=== PATIENT | female | born 1970 | race Caucasian/White ===

== ENCOUNTER 2017-08-05 13:44 | Emergency (ER) | payer OTHER ==
[~2017-08-05] VITALS: Ht 177.8 cm; Wt 97.0 kg
[~2017-08-05 13:44] MED LIST: HYDROCODON-ACE1 EAC7 PO
[2017-08-05 14:28] LABS: HEMATOCRIT 42.7 % (36.0-46.0); MCH 31.1 PG (29.0-34.0); MCHC 34.7 G/DL (30.0-36.0); MCV 89.7 FL (83-99); MEAN PLAT.VOLUME 10.4 uM^3 (9.5-12.4); PLATELET COUNT 197 K/uL (156-360); RBC DIS.WIDTH-CV 12.7 % (11.8-14.6); RBC DIS.WIDTH-SD 42.3 % (39-53); RED BLOOD COUNT 4.76 M/uL (3.80-5.20); WHITE BLOOD COUNT 9.7 K/uL (4.1-10.2)
[2017-08-05 14:39] LABS: CHLORIDE 108 mEq/L (99-109); POTASSIUM 3.9 mEq/L (3.7-5.4); SODIUM 139 mEq/L (136-147)
[2017-08-05 14:41] LABS: GLUCOSE 105 mg/dL (70-99)
[2017-08-05 14:42] LABS: ANION GAP 6 MEQ/L (2-14)
[2017-08-05 14:43] LABS: TOTAL BILIRUBIN 0.8 mg/dL (0.0-1.0)
[2017-08-05 14:45] LABS: ALKALINE PHOSPHATASE 154 IU/L (3-129); GFR ESTIMATE (CALCULATED) > 59 mL/min/
[2017-08-05 14:46] LABS: UREA NITROGEN (BUN) 14 mg/dL (9-23)
[2017-08-05 14:55] LABS: QUANTITATIVE HCG < 4.0 MIU/ML
[2017-08-05 15:17] LABS: ADD MIUA? YES; BILIRUBIN NEGATIVE; BLOOD SMALL; COLOR COLORLESS ((YELLOW)); GLUCOSE (STRIP) NEGATIVE; KETONES NEGATIVE; LEUKOCYTES NEGATIVE; NITRITE NEGATIVE; PROTEIN (STRIP) NEGATIVE; SPECIFIC GRAVITY 1.004 (1.000-1.030); UROBILINOGEN 0.2 MG/DL (0.2-1.0)
[2017-08-05 15:26] LABS: BACTERIA RARE /HPF; EPITHELIAL CELLS RARE /HPF; MUCUS NONE SEEN /LPF; RED BLOOD CELLS 0-5 /HPF (0-5); UCUL ADDED? NO; WHITE BLOOD CELLS 0-5 /HPF (0-5)
[2017-08-05] MEDS ORDERED: ZOFRAN ODT4 MG PO (16:14)
[2017-08-05 16:31] VITALS: BP 130/76
== END 2017-08-05 16:33 | disposition home or self-care (01) ==
LOC: EME 13:44
DX: R10.9 Unspecified abdominal pain (principal); R42 Dizziness and giddiness; R11.2 Nausea with vomiting, unspecified; R20.2 Paresthesia of skin
CPT/HCPCS: 80053; 81003; 84702; 85027; 93005; 99281; 99284

== ENCOUNTER 2018-03-01 11:45 | Inpatient (IN) | payer OTHER ==
[~2018-03-01] VITALS: Ht 177.8 cm; Wt 96.8 kg
[~2018-03-01 11:45] MED LIST changes: +ZOFRAN ODT4 MG PO
[2018-03-01 12:18] LABS: HEMATOCRIT 41.3 % (36.0-46.0); HEMOGLOBIN 14.3 G/DL (11.9-15.5); MCH 30.8 PG (29.0-34.0); MCHC 34.6 G/DL (30.0-36.0); MCV 88.8 FL (83-99); PLATELET COUNT 150 K/uL (156-360); RBC DIS.WIDTH-CV 13.2 % (11.8-14.6); RBC DIS.WIDTH-SD 43.3 % (39-53); RED BLOOD COUNT 4.65 M/uL (3.80-5.20); WHITE BLOOD COUNT 7.4 K/uL (4.1-10.2)
[2018-03-01] MEDS ORDERED: OSELTAMIVIR PHO75 MG PO (12:19)
[2018-03-01 12:31] LABS: CHLORIDE 98 mEq/L (99-109); POTASSIUM 3.7 mEq/L (3.7-5.4); SODIUM 135 mEq/L (136-147)
[2018-03-01 12:32] LABS: GLUCOSE 112 mg/dL (70-99)
[2018-03-01 12:36] LABS: GFR ESTIMATE (CALCULATED) > 59 mL/min/
[2018-03-01 12:37] LABS: UREA NITROGEN (BUN) 10 mg/dL (9-23)
[2018-03-01 13:36] LABS: TOTAL PROTEIN 7.9 g/dL (6.4-8.3)
[2018-03-01 13:38] LABS: TOTAL BILIRUBIN 1.1 mg/dL (0.0-1.0)
[2018-03-01 13:38] LABS: APPEARANCE SL.HAZY ((CLEAR)); BILIRUBIN NEGATIVE; BLOOD MODERATE; COLOR YELLOW ((YELLOW)); GLUCOSE (STRIP) NEGATIVE; KETONES 5; LEUKOCYTES NEGATIVE; NITRITE NEGATIVE; PROTEIN (STRIP) NEGATIVE; SPECIFIC GRAVITY 1.008 (1.000-1.030)
[2018-03-01 13:39] LABS: ALKALINE PHOSPHATASE 216 IU/L (3-129)
[2018-03-01 13:42] LABS: ALT (GPT) 91 IU/L (3-49); AST (GOT) 46 IU/L (2-34); DIRECT BILIRUBIN 0.6 mg/dL (0.0-0.3)
[2018-03-01 13:44] LABS: BACTERIA RARE /HPF; EPITHELIAL CELLS 1+ /HPF; MUCUS NONE SEEN /LPF; UCUL ADDED? NO; WHITE BLOOD CELLS 0-5 /HPF (0-5)
[2018-03-01] MEDS ORDERED: TYLENOL EXTRA500 MG PO (15:19)
[2018-03-01] MEDS ORDERED: ADVIL200 MG PO (15:20)
[2018-03-01 15:47] VITALS: BP 122/74
[2018-03-01 19:52] VITALS: BP 117/56
[2018-03-02] VITALS (7 sets, daily range): BP systolic 101–132; BP diastolic 55–69
[2018-03-02 07:29] LABS: CHLORIDE 101 MEQ/L (99-109); CREATININE 0.7 MG/DL (0.6-1.3); GFR ESTIMATE (CALCULATED) > 59 mL/min/; GLUCOSE 111 mg/dL (70-99); POTASSIUM 3.6 MEQ/L (3.7-5.4); SODIUM 138 MEQ/L (136-147); UREA NITROGEN (BUN) 7 mg/dL (9-23)
[2018-03-02 07:37] LABS: BASOPHIL (%) 0.3 % (0-1); EOSINOPHIL (%) 0.9 % (0-5); EOSINOPHIL COUNT 0.1 K/uL (0-0.3); HEMATOCRIT 37.1 % (36.0-46.0); HEMOGLOBIN 12.5 G/DL (11.9-15.5); IMMATURE GRANULOCYTE (%) 0.8 % (0.0-0.7); LYMPHOCYTE (%) 21.5 % (15-42); LYMPHOCYTE COUNT 1.4 K/uL (1.0-2.8); MCH 29.9 PG (29.0-34.0); MCHC 33.7 G/DL (30.0-36.0); MCV 88.8 FL (83-99); MONOCYTE (%) 10.4 % (3-12); MONOCYTE COUNT 0.7 K/uL (0-0.8); NEUTROPHIL (%) 66.1 % (45-76); NEUTROPHIL COUNT 4.2 K/uL (1.8-6.4); PLATELET COUNT 141 K/uL (156-360); RBC DIS.WIDTH-CV 13.4 % (11.8-14.6); RBC DIS.WIDTH-SD 44.1 % (39-53); RED BLOOD COUNT 4.18 M/uL (3.80-5.20); WHITE BLOOD COUNT 6.4 K/uL (4.1-10.2)
[2018-03-02 08:50] LABS: ALBUMIN 3.3 G/DL (3.2-4.8); ALKALINE PHOSPHATASE 141 IU/L (3-129); ALT (GPT) 62 IU/L (3-49); AST (GOT) 34 IU/L (2-34); DIRECT BILIRUBIN 0.2 mg/dL (0.0-0.3); TOTAL BILIRUBIN 0.8 MG/DL (0.0-1.0); TOTAL PROTEIN 5.8 G/DL (6.4-8.3)
[2018-03-03 03:59] VITALS: BP 105/73
[2018-03-03 08:12] VITALS: BP 135/78
[2018-03-03] MEDS ORDERED: DOXYCYCLINE HY100 MG PO (10:38)
[2018-03-03] MEDS ORDERED: CEFTIN500 MG PO (10:38)
== END 2018-03-03 11:32 | disposition home or self-care (01) | DRG 871 ==
LOC: EME 11:45 → EDOF 14:01 → 5SOUTH 14:01 → ENRESERV 14:03 → 5SOUTH 15:29
PROVIDERS: Internal Medicine; Physician Assistant
DX: A41.9 Sepsis, unspecified organism (principal); J18.9 Pneumonia, unspecified organism; R09.02 Hypoxemia; Z87.891 Personal history of nicotine dependence
CPT/HCPCS: 71046; 80048; 80076; 81003; 83605; 85025; 85027; 87040; 87449; 87502; 94799; J0295; J0456; J1650; J7030; J7050